=== PATIENT | male | born 1990 | race American Indian/Alaskan Native ===

== ENCOUNTER 2016-10-04 12:40 | Emergency (ER) | payer SELFPAY ==
[2016-10-04 13:38] LABS: Basophils % (Auto) 1.2 % (0.0-1.8); Eosinophils % (Auto) 8.9 % (0.0-4.3); Hematocrit 48.2 % (35.5-45.6); Hemoglobin 15.6 gm/dl (11.8-15.2); Mean Corpuscular HGB Conc 32 % (32-34); Mean Corpuscular Hemoglobin 29 pg (28-32); Mean Corpuscular Volume 90 fl (84-94); Platelet Count 198 K/mm3 (140-440); Red Blood Count 5.37 M/mm3 (3.65-5.03); Red Cell Distribution Width 13.6 % (13.2-15.2); White Blood Count 2.9 K/mm3 (4.5-11.0)
[2016-10-04 13:44] LABS: Alanine Aminotransferase 10 units/L (7-56); Albumin 4.7 g/dL (3.9-5); Albumin/Globulin Ratio 1.8 %; Alkaline Phosphatase 62 units/L (35-129); Anion Gap 18 mmol/L; Bilirubin,Total 0.4 mg/dL (0.1-1.2); Blood Urea Nitrogen 12 mg/dL (9-20); Calcium 9.4 mg/dL (8.4-10.2); Carbon Dioxide 27 mmol/L (22-30); Chloride 99.7 mmol/L (98-107); Glucose 94 mg/dL (75-100); Lipase 22 units/L (13-60); Potassium 5.3 mmol/L (3.6-5.0); Sodium 139 mmol/L (137-145); Total Protein 7.3 g/dL (6.3-8.2)
[2016-10-04 15:13] LABS: Bilirubin,Urine NEG (Negative); Blood,Urine NEG (Negative); Ketones,Urine NEG (Negative); Leukocyte Esterase,Urine NEG (Negative); Mucus,Urine FEW /HPF; Nitrite,Urine NEG (Negative); Protein,Urine <15 mg/dL mg/dL (Negative); Urobilinogen,Urine < 2.0 mg/dL (<2.0); WBC,Urine < 1.0 /HPF (0.0-6.0)
[2016-10-04] MEDS ORDERED: MORPHINE IV ONE (19:37)
[2016-10-04] MEDS ORDERED: PEPCID IV ONE (19:37)
[2016-10-04] MEDS ORDERED: ZOFRAN IV ONE (19:37)
[2016-10-04] MEDS ORDERED: NACL ONE (19:40)
--- NOTE | 2016-10-04 19:52 | Emergency Department Report ---
HPI - General Chief Complaint: Abdominal Pain Time Seen by Provider: 10/04/16 19:27 - HPI HPI: Room 7 The patient is 25-year-old male presenting with a chief complaint of abdominal pain. Patient states 4 days ago he developed pain in his left upper quadrant described as a "hurting wave." Patient states the pain has been intermittent. Patient denies any preceding trauma the patient states she does not remember what he had eaten last before his symptoms began. The patient admits to nausea but denies vomiting. 2 days ago the patient developed diarrhea. Patient denies sick contacts or fever. The patient currently gives his pain a score of 4/10 Location: Abdomen Duration: 4 days Quality: "Hurting wave" Severity: 4/10 Modifying factors: [see above] Context: [see above] Mode of transportation: [not driving] ED Past Medical Hx - Past Medical History Previous Medical History?: No - Surgical History Past Surgical History?: No - Family History Family history: no significant - Social History Smoking Status: Current Every Day Smoker Substance Use Type: None (denies illicit drug use), Alcohol (rarely) - Medications Home Medications: Home Medications Medication Instructions Recorded Confirmed Last Taken Type Famotidine [Pepcid] 20 mg PO BID #20 tablet 10/04/16 Unknown Rx Promethazine [Phenergan TAB] 25 mg PO Q6HR PRN #20 tab 10/04/16 Unknown Rx traMADol [Ultram] 50 mg PO Q6HR PRN #10 tablet 10/04/16 Unknown Rx ED Review of Systems ROS: Stated complaint: ABD PAIN Other details as noted in HPI Comment: All other systems reviewed and negative Constitutional: denies: chills, fever Eyes: denies: eye pain, eye discharge, vision change ENT: denies: ear pain, throat pain Respiratory: denies: cough, shortness of breath, wheezing Cardiovascular: denies: chest pain, palpitations Endocrine: no symptoms reported Gastrointestinal: abdominal pain, nausea, diarrhea. denies: vomiting Genitourinary: denies: urgency, dysuria Musculoskeletal: denies: back pain, joint swelling, arthralgia Skin: denies: rash, lesions Neurological: denies: headache, weakness, paresthesias Psychiatric: denies: anxiety, depression Hematological/Lymphatic: denies: easy bleeding, easy bruising Physical Exam - Physical Exam Vital Signs: Vital Signs 10/04/16 13:02 Temperature 98.2 F Pulse Rate 63 Respiratory 17 Rate Blood Pressure 138/85 O2 Sat by Pulse 100 Oximetry Physical Exam: GENERAL: The patient is well-developed well-nourished male lying on stretcher not appear to be in acute distress. [] HEENT: Normocephalic. Atraumatic. Extraocular motions are intact. Patient has moist mucous membranes. NECK: Supple. Trachea midline CHEST/LUNGS: Clear to auscultation. There is no respiratory distress noted. HEART/CARDIOVASCULAR: Regular. There is no tachycardia. There is no gallop rub or murmur. ABDOMEN: Abdomen is soft, with mild discomfort to palpation in the left upper quadrant. Patient has normal bowel sounds. There is no abdominal distention. SKIN: There is no rash. There is no edema. There is no diaphoresis. NEURO: The patient is awake, alert, and oriented. The patient is cooperative. The patient has normal speech MUSCULOSKELETAL: There is no CVA tenderness. There is no evidence of acute injury. ED Course Vital Signs 10/04/16 13:02 Temperature 98.2 F Pulse Rate 63 Respiratory 17 Rate Blood Pressure 138/85 O2 Sat by Pulse 100 Oximetry ED Medical Decision Making - Lab Data Result diagrams: 10/04/16 13:14 10/04/16 13:14 Laboratory Tests 10/04/16 10/04/16 10/04/16 13:14 13:14 14:43 WBC 2.9 L RBC 5.37 H Hgb 15.6 H Hct 48.2 H MCV 90 MCH 29 MCHC 32 RDW 13.6 Plt Count 198 Lymph % (Auto) 26.3 [place] % (Auto) 7.2 Eos % (Auto) 8.9 H Baso % (Auto) 1.2 Lymph # 0.8 L [place] # 0.2 Eos # 0.3 Baso # 0.0 Seg Neutrophils % 56.4 Seg Neutrophils # 1.6 L Sodium 139 Potassium 5.3 H Chloride 99.7 Carbon Dioxide 27 Anion Gap 18 BUN 12 Creatinine 0.8 Estimated GFR > 60 BUN/Creatinine Ratio 15.00 Glucose 94 Calcium 9.4 Total Bilirubin 0.4 AST 15 ALT 10 Alkaline Phosphatase 62 Total Protein 7.3 Albumin 4.7 Albumin/Globulin Ratio 1.8 Lipase 22 Urine Color Yellow Urine Turbidity Clear Urine pH 8.0 H Ur Specific [place] 1.013 Urine Protein <15 mg/dl Urine Glucose (UA) Neg Urine Ketones Neg Urine Blood Neg Urine Nitrite Neg Urine Bilirubin Neg Urine Urobilinogen < 2.0 Ur Leukocyte Esterase Neg Urine WBC (Auto) < 1.0 Urine RBC (Auto) 2.0 Urine Mucus Few - Radiology Data Radiology results: report reviewed (CT abdomen and pelvis), image reviewed (CT abdomen and pelvis) CT abdomen and pelvis (read by radiologist)-there is not evidence of bulging structure at this time. Small amount of low density ascites is noted in the pelvis. There is suggestion of wall thickening in the proximal descending colon. This may be exaggerated by nondistention. Possibility of inflammatory process is not excluded given history provided. - Differential Diagnosis splenomegaly, peptic ulcer disease, gastritis, gastroenteritis, splenic inf Critical care attestation.: If time is entered above; I have spent that time in minutes in the direct care of this critically ill patient, excluding procedure time. ED Disposition Clinical Impression: Abdominal pain, acute, Diarrhea, Leukopenia Disposition: DISCHARGED TO HOME OR SELFCARE Is pt being admited?: No Does the pt Need Aspirin: No Condition: Stable Instructions: Acute Diarrhea (ED), Abdominal Pain (ED) Additional Instructions: Return to the emergency department immediately should you develop worsening symptoms, fever, inability to tolerate food or liquid or any other concerns. Prescriptions: Famotidine [Pepcid] 20 mg PO BID #20 tablet Promethazine [Phenergan TAB] 25 mg PO Q6HR PRN #20 tab PRN Reason: Nausea traMADol [Ultram] 50 mg PO Q6HR PRN #10 tablet PRN Reason: Pain Referrals: [facility] [Outside] - 3-5 Days DAPHNE GARCIA MD [Staff Physician] - 3-5 Days (Dr. Garcia is a primary physician. Please follow up with him for further evaluation) MARY STEVENSON MD [Staff Physician] - 3-5 Days (Dr. Stevenson is a component lab tech. Please follow up with him for further evaluation) Time of Disposition: 21:19
--- NOTE | 2016-10-04 20:34 | Cat Scan Report ---
FINAL REPORT EXAM: CT ABDOMEN PELVIS W CON HISTORY: LUQ abdominal pain nausea and diarrhea TECHNIQUE: Serial axial images through the abdomen and pelvis with coronal and sagittal reconstruction. 100 milliliters Omnipaque 300 PRIORS: None. FINDINGS: No focal consolidations are seen in the lung bases. No pleural effusion is seen. The liver, gallbladder, pancreas, spleen and adrenal glands appear within normal limits. Kidneys appear normal. Aorta is normal in caliber. Bladder appears normal. Small amount of low-density ascites is seen in the pelvis. There is not evidence of bowel obstruction. The appendix is not identified with certainty among the bowel loops in the right lower quadrant. There is suggestion of wall thickening in the proximal descending colon. No acute osseous abnormality is identified. Broad-based disc bulge is noted at L5-S1. IMPRESSION: 1. There is not evidence of bowel obstruction at this time. 2. Small amount of low-density ascites is noted in the pelvis. 3. There is suggestion of wall thickening in the proximal descending colon. This may be exaggerated by nondistention. Possibility of inflammatory process is not excluded given history provided.
[2016-10-04 22:04] VITALS: BP 129/79
== END 2016-10-04 21:30 | disposition home or self-care (01) ==
LOC: ED 12:40
DX: R10.12 Left upper quadrant pain (principal); D72.819 Decreased white blood cell count, unspecified; R19.7 Diarrhea, unspecified; F17.200 Nicotine dependence, unspecified, uncomplicated
CPT/HCPCS: 36415; 74177; 80053; 81001; 83690; 85025; 96374; 96375; 99284; J2270; J2405; Q9967

== ENCOUNTER 2019-12-28 22:18 | Emergency (ER) | payer SELFPAY ==
[2019-12-28 22:28] VITALS: BP 140/83
== END 2019-12-29 03:56 | disposition left against medical advice (07) ==
LOC: ED 22:18
DX: J34.89 Other specified disorders of nose and nasal sinuses (principal); Z53.21 Procedure and treatment not carried out due to patient leaving prior to being seen by health care provider

== ENCOUNTER 2020-05-31 23:00 | Emergency (ER) | payer SELFPAY ==
[2020-06-01 00:15] VITALS: BP 106/58
== END 2020-06-01 03:22 | disposition left against medical advice (07) ==
LOC: ED 23:00
DX: R07.89 Other chest pain (principal); Z53.21 Procedure and treatment not carried out due to patient leaving prior to being seen by health care provider

== ENCOUNTER 2021-01-03 01:10 | Emergency (ER) | payer SELFPAY ==
[2021-01-03 01:36] VITALS: BP 124/75
[2021-01-03] MEDS ORDERED: TETANUS,DIPH,PERTUSS(ACELL) VACCINE 0.5 ML SYRINGE IM ONE (07:52)
[2021-01-03] MEDS ORDERED: LIDOCAINE (1%) 10 MG/1 ML VIAL 20 ML MDV INFILTRATI ONE (07:54)
[2021-01-03] MEDS ORDERED: SILVER NITRATE APPLICATOR 1 EA TP ONE (07:54)
[2021-01-03] MEDS ORDERED: BUPIVACAINE/PF (0.5%) 5 MG/1 ML 10 ML VIAL INFILTRATI NR (08:00)
--- NOTE | 2021-01-03 08:01 | Emergency Department Report ---
HPI - General Chief Complaint: Wound/Laceration Time Seen by Provider: 01/03/21 07:46 - HPI HPI: Room 24 The patient is a 30-year-old male present with a chief complaint of finger injury. The patient states last night at approximate 21: 00 while throwing a [employer] a piece of metal on the device cut his right thumb. Patient gives his pain a score of 8/10 ED Past Medical Hx - Past Medical History Previous Medical History?: No - Surgical History Past Surgical History?: No - Family History Family history: no significant - Social History Smoking Status: Never Smoker Substance Use Type: None (Denies illicit drug use) - Medications Home Medications: Home Medications Medication Instructions Recorded Confirmed Last Taken Type Famotidine [Pepcid] 20 mg PO BID #20 tablet 10/04/16 Unknown Rx Promethazine [Phenergan TAB] 25 mg PO Q6HR PRN #20 tab 10/04/16 Unknown Rx traMADoL [Ultram] 50 mg PO Q6HR PRN #10 tablet 10/04/16 Unknown Rx Ibuprofen [Motrin 800 MG tab] 800 mg PO Q8HR PRN #20 tablet 01/03/21 Unknown Rx ED Review of Systems ROS: Stated complaint: RT HAND LACERATION Other details as noted in HPI Constitutional: no symptoms reported Respiratory: no symptoms reported Endocrine: no symptoms reported Skin: other (Skin avulsion) Physical Exam - Physical Exam Vital Signs: Vital Signs 01/03/21 01:33 Temperature 98.7 F Pulse Rate 86 Respiratory 18 Rate Blood Pressure 124/75 O2 Sat by Pulse 100 Oximetry Physical Exam: GENERAL: The patient is well-developed well-nourished male sitting on stretcher not appearing to be in acute distress. [] HEENT: Normocephalic. Atraumatic. Extraocular motions are intact. Patient has moist mucous membranes. NECK: Supple. Trachea midline CHEST/LUNGS: There is no respiratory distress noted. HEART/CARDIOVASCULAR: Regular. There is no tachycardia. 2+ right radial pulse SKIN: There is an irregularly shaped skin avulsion to the palmar aspect of the right thumb approximately 1.5 cm in diameter. Some venous oozing present NEURO: The patient is awake, alert, and oriented. GCS 15 MUSCULOSKELETAL: There is no evidence of acute injury. ED Course Vital Signs 01/03/21 01:33 Temperature 98.7 F Pulse Rate 86 Respiratory 18 Rate Blood Pressure 124/75 O2 Sat by Pulse 100 Oximetry - Nerve Block Consent Obtained: verbal consent Time Out Performed: No Local Anesthetic Used: Lidocaine 1% Amount of anesthesia used: 4 (Lidocaine 1% was mixed with bupivacaine 0.5% in a 1:1 ratio) Side: right Nerve Blocks: digital (Thumb) Procedure Successful: Yes Complications: none Patient Tolerated Procedure: well Additional Comments: After digital block. Right thumb wound was irrigated copiously with normal saline and then silver nitrate was used to stop venous oozing. Patient hemostatic after application of silver nitrate. Xeroform gauze and dressing placed. ED Medical Decision Making - Differential Diagnosis Skin avulsion Critical care attestation.: If time is entered above; I have spent that time in minutes in the direct care of this critically ill patient, excluding procedure time. ED Disposition Clinical Impression: Avulsion of skin of right thumb Disposition: DC- TO HOME OR SELFCARE Is pt being admited?: No Does the pt Need Aspirin: No Condition: Stable Instructions: Wound Care, Adult Additional Instructions: Return to the emergency department should you develop worsening symptoms, inability to tolerate food or liquids, high fever or any other concerns Prescriptions: Ibuprofen [Motrin 800 MG tab] 800 mg PO Q8HR PRN #20 tablet PRN Reason: Pain , Severe (7-10) Referrals: PRIMARY CARE,MD [Primary Care Provider] - 3-5 Days Time of Disposition: 08:16
[2021-01-03] MEDS ORDERED: SODIUM CHLORIDE IRRI 500 ML 500 ML IR ONE (08:02)
[2021-01-03] MEDS ORDERED: NEOMY 3.5 MG/BACIT 400 UNITS/POLY B 5000 UNITS OINT 15 GM TP SCH (09:30)
== END 2021-01-03 09:30 | disposition home or self-care (01) ==
LOC: ED 01:10
DX: S61.001A Unspecified open wound of right thumb without damage to nail, initial encounter (principal); Z79.899 Other long term (current) drug therapy; W45.8XXA Other foreign body or object entering through skin, initial encounter; Y93.89 Activity, other specified; Y92.89 Other specified places as the place of occurrence of the external cause; Y99.8 Other external cause status
CPT/HCPCS: 64450; 90471; 90715; 99282; A6250